=== PATIENT | female | born 1990 | race Caucasian/White ===

== ENCOUNTER 2016-12-27 19:31 | Emergency (ER) | payer MEDICAID, OTHER ==
[~2016-12-27] VITALS: Ht 170.2 cm; Wt 49.5 kg
[2016-12-27 19:36] VITALS: Ht 170.2 cm; Wt 49.5 kg
--- NOTE | 2016-12-27 20:23 | ERD ---
ER Documentation Chief Complaint Date/Time DATE: 12/27/16 TIME: 20:20 Chief Complaint wants blood test for HPI 26-year-old female who presents to the emergency room requesting blood test for . She states over the last several days she has noted a bloating sensation and a feeling that "I might be ". The patient states that her last menstrual period was November 25. She had sexual intercourse on December 03 and has not had a menstrual period since. She denies any vaginal bleeding, no significant abdominal pain, no fevers chills or rash. The patient feels that she is eating more than usual. She denies polydipsia or polyuria. ROS All systems reviewed and are negative except as per history of present illness. Allergies Allergies: Coded Allergies: No Known Drug Allergies (Verified Allergy, Unknown, 12/27/16) PMhx/Soc Medical and Surgical Hx: pt denies Medical Hx, pt denies Surgical Hx History of Surgery: No Anesthesia Reaction: No Hx Neurological Disorder: No Hx Respiratory Disorders: No Hx Cardiac Disorders: No Hx Psychiatric Problems: No Hx Miscellaneous Medical Probl: No Hx Alcohol Use: No Hx Substance Use: No Hx Tobacco Use: No Smoking Status: Never smoker FmHx Family History: diabetes Physical Exam Vitals Vital Signs Date Time Temp Pulse Resp B/P Pulse Ox O2 Delivery O2 Flow Rate FiO2 12/27/16 19:36 97.1 60 20 110/56 100 Physical Exam General: Well developed, well nourished, no acute distress Head: Normocephalic, atraumatic. Eyes: Pupils equally reactive, EOM intact ENT: Moist mucous membranes Neck: Supple, no lymphadenopathy Respiratory: Lungs clear bilaterally, no distress Cardiovascular: RRR, no murmurs, rubs, or gallops Abdominal: Soft, non-tender, non-distended, no peritoneal signs : Deferred MSK: No edema, no unilateral swelling, 5/5 strength Neurologic: Alert and oriented, moving all extremities, normal speech, no focal weakness, no cerebellar signs Skin: No rash Psych: Normal mood Results 24 hrs Laboratory Tests Test 12/27/16 20:27 Bedside Urine pH (LAB) 7.0 Bedside Urine Protein (LAB) Negative Bedside Urine Glucose (UA) Negative Bedside Urine Ketones (LAB) Negative Bedside Urine Blood Negative Bedside Urine Nitrite (LAB) Negative Bedside Urine Leukocyte Esterase (L Negative Procedures/MDM LAB INTERPRETATION: Negative urine hCG. Patient is now refusing to wait for serum hCG, thyroid testing, Accu-Chek. MEDICAL DECISION MAKING: The patient presents with multiple complaints including polyphagia, subjective weight gain, bloating sensation and secondary amenorrhea. The patient is requesting blood testing for her hCG. This is possibly related to versus normal menstrual cycle. No signs or symptoms concerning for DKA that the patient does have a family history of diabetes. Consider possible thyroid dysfunction over the patient has no evidence of clinically significant hypothyroidism or thyroid storm. The patient has a primary care physician. The patient took a home test approximately 3 days ago that was negative. Given the patient's request I will send a serum hCG, Accu-Chek, hwsur-nr-pxiy glucose and thyroid function. I do not believe the patient requires observation until thyroid results, the patient can follow-up with her primary care physician and request this information. She has had thyroid testing the past that has been normal. She is otherwise well-appearing. ER COURSE: The patient is now refusing to wait for laboratory testing, she refuses point of care Johny. Her hCG, point of care is negative. The patient is leaving. I kept the patient and/or family informed of laboratory and diagnostic imaging results throughout the emergency room course. DISPOSITION PLAN: We discussed follow up with the patient's primary care doctor within 24 to 48 hours as needed. We also discussed return to the emergency room for worsening symptoms or worsening condition. Outpatient referral: [facility] \\\\ Departure Diagnosis: Primary Impression: Encounter for laboratory test Condition: PARTH Nixon MD Dec 27, 2016 20:23
[2016-12-27 20:27] LABS: URINE BLOOD (Dip) POC Negative (NEGATIVE)
[2016-12-27 21:38] VITALS: BP 117/68; PULSE 89; RESP 17; TEMP 97.1
== END 2016-12-27 21:39 | disposition home or self-care (01) ==
LOC: FTE 19:31
DX: Z32.02 Encounter for pregnancy test, result negative (principal)
CPT/HCPCS: 81003; 84436; 84479; 84702; 99283

== ENCOUNTER 2017-01-03 08:33 | Emergency (ER) | payer MEDICAID ==
[~2017-01-03] VITALS: Ht 157.5 cm; Wt 50.0 kg
[2017-01-03 08:46] VITALS: Ht 157.5 cm; Wt 50.0 kg
--- NOTE | 2017-01-03 11:08 | ERD ---
ER Documentation Chief Complaint Date/Time DATE: 01/03/17 TIME: 11:05 Chief Complaint needs test, lmp 11/29/16 HPI 26-year-old female presents emergency department with abdominal bloating, increase in appetite, and back pain, with a late menses. She states that her last menstrual cycle was on November 29, 2016. She denies pelvic pain, abdominal pain or vaginal bleeding at this time. She was here several days ago and had a negative test. Her thyroid panel was also reviewed and unremarkable. Patient reports that she had unprotected intercourse on December 10, 2016, she also took a Plan B on December 03, 2016. ROS All systems reviewed and are negative except as per history of present illness. Allergies Allergies: Coded Allergies: No Known Drug Allergies (Verified Allergy, Unknown, 01/03/17) PMhx/Soc History of Surgery: No Anesthesia Reaction: No Hx Neurological Disorder: No Hx Respiratory Disorders: No Hx Cardiac Disorders: No Hx Psychiatric Problems: No Hx Miscellaneous Medical Probl: No Hx Alcohol Use: No Hx Substance Use: No Hx Tobacco Use: No Smoking Status: Never smoker Physical Exam Vitals Vital Signs Date Time Temp Pulse Resp B/P Pulse Ox O2 Delivery O2 Flow Rate FiO2 01/03/17 08:46 97.7 71 18 102/59 98 Physical Exam General: Well-developed, well-nourished. The patient appears in no acute distress. HEENT: Head is normocephalic, atraumatic. No scleral icterus. Neck: Supple. Nontender. Lungs: Clear to auscultation. Normal air movement. Heart: Regular rate and rhythm. S1 and S2 are normal. No murmurs, gallops, or rubs. Abdomen: Nondistended. Nontender Extremities: No clubbing or cyanosis. Moving extremities x 4. No weakness. Neurologic: Alert and oriented 3. No focal deficits. Normal speech and gait. Skin: Normal turgor. No rash or lesions. Results 24 hrs Laboratory Tests Test 01/03/17 09:15 Beta HCG, Quantitative < 2.4mIU/ml Procedures/MDM ED course: Urine was negative, serum beta quant, negative as well. MDM: 26-year-old female presents with abdominal bloating, increased appetite, back pain, with irregular menses. Differentials considered include , ectopic , UTI, thyroid dysfunction. Given that she has had a recent thyroid panel, and vitals are stable, my decision making included a repeat beta quant, I do not feel that the patient needs further thyroid testing at this time. Given that her ECG is negative, there are no signs of any ectopic, molar . She has been asked to recheck at home in 2-3 days. Departure Diagnosis: Primary Impression: Encounter for laboratory test Condition: Good Patient Instructions: Understanding the Normal Menstrual Cycle, Hormones Control Your Menstrual Cycle Referrals: [facility] YOU HAVE RECEIVED A MEDICAL SCREENING EXAM AND THE RESULTS INDICATE THAT YOU DO NOT HAVE A CONDITION THAT REQUIRES URGENT TREATMENT IN THE EMERGENCY DEPARTMENT. FURTHER EVALUATION AND TREATMENT OF YOUR CONDITION CAN WAIT UNTIL YOU ARE SEEN IN YOUR DOCTORS OFFICE WITHIN THE NEXT 1-2 DAYS. IT IS YOUR RESPONSIBILITY TO MAKE AN APPOINTMENT FOR FOLOW-UP CARE. IF YOU HAVE A PRIMARY DOCTOR --you should call your primary doctor and schedule an appointment IF YOU DO NOT HAVE A PRIMARY DOCTOR YOU CAN CALL OUR PHYSICIAN REFERRAL HOTLINE AT IF YOU CAN NOT AFFORD TO SEE A PHYSICIAN YOU CAN CHOSE FROM THE FOLLOWING [facility] [address] [facility]. [facility] [address] [facility]. [facility] [address] [facility] [address] [facility] [address] [facility]. [facility]. [address] [facility]. [facility] YOU HAVE RECEIVED A MEDICAL SCREENING EXAM AND THE RESULTS INDICATE THAT YOU DO NOT HAVE A CONDITION THAT REQUIRES URGENT TREATMENT IN THE EMERGENCY DEPARTMENT. FURTHER EVALUATION AND TREATMENT OF YOUR CONDITION CAN WAIT UNTIL YOU ARE SEEN IN YOUR DOCTORS OFFICE WITHIN THE NEXT 1-2 DAYS. IT IS YOUR RESPONSIBILITY TO MAKE AN APPOINTMENT FOR FOLOW-UP CARE. IF YOU HAVE A PRIMARY DOCTOR --you should call your primary doctor and schedule and appointment IF YOU DO NOT HAVE A PRIMARY DOCTOR YOU CAN CALL OUR PHYSICIAN REFERRAL HOTLINE AT . IF YOU CAN NOT AFFORD TO SEE A PHYSICIAN YOU CAN CHOSE FROM THE FOLLOWING [facility]: [facility] [address] [place] [address] [facility] [address] [place] [address] [facility] [address] [place] [address] [facility] [employer] [place] [address] [facility] [address] [place] [address] OFFICE FAX , [facility] [address] [place] [address] [facility] [address] [place] [address] [address], [facility] [address] [facility], [address], [facility] [address] [address] [place] [address] [facility] [address] [place] [address] [address] [facility] [address] [address] [facility], [facility] [address] [address], [place] [address] [facility]. [address], [facility] [address] [address] [address] [place], [place] [id number] Additional Instructions: Call your primary care doctor TOMORROW for an appointment during the next 1-2 days.See the doctor sooner or return here if your condition worsens before your appointment time. OCTAVIA ARREDONDO PA-C Jan 03, 2017 11:08
== END 2017-01-03 10:49 | disposition home or self-care (01) ==
LOC: FTE 08:33
DX: Z32.02 Encounter for pregnancy test, result negative (principal)
CPT/HCPCS: 84702; Z7502; 99283